=== PATIENT | female | born 1960 | race Caucasian/White ===

== ENCOUNTER 2016-09-28 18:04 | Emergency (ER) | payer OTHER ==
[~2016-09-28] VITALS: Ht 149.9 cm; Wt 56.2 kg
[2016-09-28 19:11] LABS: BASOPHIL % 1.1 % (0-2); PLATELET COUNT 270 x10^3mcL (130-400); RED CELL DISTRIBUTION WIDTH 13.5 % (11.5-14.5)
[2016-09-28 19:17] LABS: CALCIUM 9.2 mg/dL (8.5-10.1); CARBON DIOXIDE 31.2 mmol/L (21-32); CHLORIDE SERUM 105 mmol/L (98-107); CREATININE SERUM 0.8 mg/dL (0.6-1.0); GFR1 > 60 mL/min; GLUCOSE SERUM 109 mg/dL (74-106); SODIUM SERUM 142 mmol/L (136-145)
[2016-09-28 19:23] LABS: ALBUMIN 3.7 g/dL (3.4-5.0); ALKALINE PHOSPHATASE 74 U/L (46-116); ALT/SGPT 28 U/L (14-59); AST/SGOT 17 U/L (15-37); BILIRUBIN TOTAL 0.18 mg/dL (0.20-1.00); CHOLESTEROL 147 mg/dL (<200); CHOLESTEROL/HDL RATIO 2.7; HDL CHOLESTEROL 54 mg/dL (40-60); LIPASE 169 IU/L (73-393); TOTAL PROTEIN, SERUM 7.1 g/dL (6.4-8.2); TRIGLYCERIDES 66 mg/dL (<150)
[2016-09-28 19:23] LABS: UA SPECIFIC GRAVITY <=1.005 (1.005-1.035); microscopic required? YES; urine erythrocyte NEGATIVE (NEGATIVE)
[2016-09-28 19:31] LABS: FREE T4 1.17 ng/dL (0.76-1.46); FREE THYROXINE INDEX 2.9 ug/dL (1.4-4.5); T4(THYROXINE) 7.8 ug/dL (4.7-13.3)
[2016-09-28 19:38] LABS: T3 TOTAL 1.06 ng/mL
[2016-09-28 20:41] VITALS: BP 139/77
== END 2016-09-28 20:41 | disposition home or self-care (01) ==
LOC: ED 18:04
PROVIDERS: Specialist
DX: R10.11 Right upper quadrant pain (principal); R10.13 Epigastric pain; I10 Essential (primary) hypertension; Z90.49 Acquired absence of other specified parts of digestive tract
CPT/HCPCS: 83880; 84439; J1885; J2405; J3010; J7030; Q0092

== ENCOUNTER 2017-03-03 08:49 | Emergency (ER) | payer OTHER ==
[~2017-03-03] VITALS: Ht 160 cm; Wt 57.6 kg
[2017-03-03 10:57] VITALS: BP 127/80
== END 2017-03-03 11:10 | disposition home or self-care (01) ==
LOC: ED 08:49
DX: J98.01 Acute bronchospasm (principal); I10 Essential (primary) hypertension; E78.00 Pure hypercholesterolemia, unspecified
CPT/HCPCS: J7512; J7613; Q0092

== ENCOUNTER 2017-05-05 14:06 | Emergency (ER) | payer OTHER ==
[2017-05-05 16:00] VITALS: BP 116/64
== END 2017-05-05 16:00 | disposition home or self-care (01) ==
LOC: ED 14:06
DX: S82.831A Other fracture of upper and lower end of right fibula, initial encounter for closed fracture (principal); X50.1XXA Overexertion from prolonged static or awkward postures, initial encounter; Y93.89 Activity, other specified; Y92.89 Other specified places as the place of occurrence of the external cause; Y99.8 Other external cause status; I10 Essential (primary) hypertension; F41.9 Anxiety disorder, unspecified; E78.00 Pure hypercholesterolemia, unspecified
CPT/HCPCS: J1885; J2270; Q0092; Q0162

== ENCOUNTER 2017-09-01 08:35 | Inpatient (IN) | payer OTHER ==
[~2017-09-01] VITALS: Ht 149.9 cm; Wt 54.0 kg
[2017-09-01 09:37] LABS: BASOPHIL % 1.2 % (0-2); PLATELET COUNT 274 x10^3mcL (130-400); RED CELL DISTRIBUTION WIDTH 13.7 % (11.5-14.5)
[2017-09-01] MEDS ORDERED: METFORMIN ER500 M1 PO (09:43)
[2017-09-01] MEDS ORDERED: VASOTEC20 MG PO (09:44)
[2017-09-01] MEDS ORDERED: PEPCID20 MG PO (09:44)
[2017-09-01] MEDS ORDERED: ZOCOR5 MG PO (09:45)
[2017-09-01 09:58] LABS: CALCIUM 9.4 mg/dL (8.5-10.1); CARBON DIOXIDE 27.7 mmol/L (21-32); CHLORIDE SERUM 104 mmol/L (98-107); CREATININE SERUM 0.7 mg/dL (0.6-1.0); GFR1 > 60 mL/min; GLUCOSE SERUM 99 mg/dL (74-106); POTASSIUM SERUM 3.8 mmol/L (3.5-5.1); SODIUM SERUM 141 mmol/L (136-145)
[2017-09-01 10:10] LABS: ALBUMIN 3.8 g/dL (3.4-5.0); ALKALINE PHOSPHATASE 79 U/L (46-116); ALT/SGPT 20 U/L (14-59); AMYLASE 45 U/L (25-115); AST/SGOT 16 U/L (15-37); BILIRUBIN TOTAL 0.3 mg/dL (0.20-1.00); CHOLESTEROL 173 mg/dL (<200); HDL CHOLESTEROL 53 mg/dL (40-60); LIPASE 74 IU/L (73-393); T4(THYROXINE) 8.9 ug/dL (4.7-13.3); TOTAL PROTEIN, SERUM 7.3 g/dL (6.4-8.2)
[2017-09-01 10:42] LABS: microscopic required? NO
[2017-09-01 11:03] LABS: UA SPECIFIC GRAVITY 1.015 (1.005-1.035); urine erythrocyte NEGATIVE (NEGATIVE)
[2017-09-01 11:21] LABS: AMPHETAMINE QUAL UR NONE DETECTED (NEG <=1000)
[2017-09-01 15:06] LABS: T3 TOTAL 1.02 ng/mL
[2017-09-01 15:13] LABS: FREE T4 1.32 ng/dL (0.76-1.46); FREE THYROXINE INDEX 3.3 ug/dL (1.4-4.5); T4(THYROXINE) 8.8 ug/dL (4.7-13.3)
[2017-09-01 15:16] VITALS: BP 119/75
[2017-09-02 06:15] VITALS: BP 128/71
[2017-09-02 06:37] LABS: BASOPHIL % 1.2 % (0-2); PLATELET COUNT 267 x10^3mcL (130-400); RED CELL DISTRIBUTION WIDTH 13.5 % (11.5-14.5)
[2017-09-02 06:42] LABS: CALCIUM 9.2 mg/dL (8.5-10.1); CHLORIDE SERUM 104 mmol/L (98-107); GFR1 > 60 mL/min; GLUCOSE SERUM 95 mg/dL (74-106); POTASSIUM SERUM 3.4 mmol/L (3.5-5.1); SODIUM SERUM 142 mmol/L (136-145)
[2017-09-02 08:46] VITALS: Ht 149.9 cm; Wt 54.0 kg
[2017-09-02 10:27] VITALS: BP 124/78
[2017-09-02 13:07] VITALS: BP 124/78
[2017-09-02] MEDS ORDERED: TYL325 PO (13:32)
[2017-09-02 13:42] VITALS: BP 124/78
== END 2017-09-02 14:47 | disposition home or self-care (01) | DRG 243 ==
LOC: ED 08:35 → DU 12:21
PROVIDERS: Emergency Medicine; Family Medicine
DX: K21.9 Gastro-esophageal reflux disease without esophagitis (principal); G90.8 Other disorders of autonomic nervous system; I10 Essential (primary) hypertension; E11.9 Type 2 diabetes mellitus without complications; Z90.49 Acquired absence of other specified parts of digestive tract; E78.00 Pure hypercholesterolemia, unspecified; E78.5 Hyperlipidemia, unspecified; G47.00 Insomnia, unspecified; F41.9 Anxiety disorder, unspecified
CPT/HCPCS: 83880; 84439; J1885; J1940; J7030; Q0092

== ENCOUNTER 2018-09-12 21:09 | Emergency (ER) | payer OTHER ==
[~2018-09-12] VITALS: Ht 149.9 cm; Wt 61.2 kg
[~2018-09-12 21:09] MED LIST: METFORMIN ER500 M1 PO; PEPCID20 MG PO; TYL325 PO; VASOTEC20 MG PO; ZOCOR5 MG PO
[2018-09-12 21:13] VITALS: Ht 149.9 cm; Wt 61.2 kg
[2018-09-12 23:44] LABS: CALCIUM 9.3 mg/dL (8.5-10.1); CARBON DIOXIDE 28.1 mmol/L (21-32); CREATININE SERUM 1.1 mg/dL (0.6-1.0); POTASSIUM SERUM 4.5 mmol/L (3.5-5.1)
[2018-09-13 00:03] LABS: ALBUMIN 3.9 g/dL (3.4-5.0); BILIRUBIN TOTAL 0.2 mg/dL (0.20-1.00); TOTAL PROTEIN, SERUM 7.4 g/dL (6.4-8.2)
[2018-09-13 00:07] LABS: BASOPHIL % 0.8 % (0-2); PLATELET COUNT 267 x10^3mcL (130-400); RED CELL DISTRIBUTION WIDTH 13.4 % (11.5-14.5)
[2018-09-13 00:52] VITALS: BP 126/70
== END 2018-09-13 01:05 | disposition home or self-care (01) ==
LOC: ED 21:09
PROVIDERS: Emergency Medicine
DX: R42 Dizziness and giddiness (principal); E86.0 Dehydration; I10 Essential (primary) hypertension; E78.00 Pure hypercholesterolemia, unspecified; F41.9 Anxiety disorder, unspecified
CPT/HCPCS: J1885; J7030; Q0092

== ENCOUNTER 2019-07-01 21:44 | Emergency (ER) | payer OTHER ==
[~2019-07-01] VITALS: Ht 149.9 cm; Wt 58.1 kg
[2019-07-01 22:09] VITALS: Ht 149.9 cm; Wt 58.1 kg
[2019-07-01 23:00] LABS: BASOPHIL % 0.4 % (0-2); PLATELET COUNT 297 x10^3mcL (130-400); RED CELL DISTRIBUTION WIDTH 13.6 % (11.5-14.5)
[2019-07-01 23:12] LABS: CALCIUM 9.3 mg/dL (8.5-10.1); CARBON DIOXIDE 29.5 mmol/L (21-32); CHLORIDE SERUM 104 mmol/L (98-107); CREATININE SERUM 0.9 mg/dL (0.6-1.0); GFR1 > 60 mL/min; GLUCOSE SERUM 126 mg/dL (74-106); POTASSIUM SERUM 4.2 mmol/L (3.5-5.1); SODIUM SERUM 141 mmol/L (136-145)
[2019-07-01 23:16] LABS: ALKALINE PHOSPHATASE 87 U/L (46-116); ALT/SGPT 25 U/L (14-59); AST/SGOT 19 U/L (15-37); BILIRUBIN TOTAL 0.35 mg/dL (0.20-1.00); TOTAL PROTEIN, SERUM 8.1 g/dL (6.4-8.2)
[2019-07-02 03:15] VITALS: BP 116/66
== END 2019-07-02 03:15 | disposition home or self-care (01) ==
LOC: ED 21:44
PROVIDERS: Emergency Medicine
DX: R51 Headache (principal); R07.89 Other chest pain; I10 Essential (primary) hypertension; E78.00 Pure hypercholesterolemia, unspecified
CPT/HCPCS: J3475; Q0092